=== PATIENT | male | born 1965 | race Caucasian/White ===

== ENCOUNTER 2021-01-18 09:15 | Outpatient (CLI) | payer OTHER | END 2021-01-18 09:45 | LOC: SLEEP 09:15 | PROVIDERS: ATTEND Otolaryngology Otolaryngology/Facial Plastic Surgery | DX: G47.33 Obstructive sleep apnea (adult) (pediatric) (principal); G47.10 Hypersomnia, unspecified | CPT/HCPCS: G0399 ==

== ENCOUNTER 2021-12-06 05:27 | Outpatient (CLI) | payer OTHER ==
[~2021-12-06] VITALS: Ht 187.9 cm; Wt 113.6 kg
[2021-12-09] MEDS ORDERED: HYDR25TA4 PO (15:55)
[2021-12-09] MEDS ORDERED: PRD1T PO (15:55)
== END 2021-12-09 16:02 | disposition home or self-care (01) ==
LOC: PREOP 05:27
PROVIDERS: ATTEND Otolaryngology Otolaryngology/Facial Plastic Surgery
DX: Z01.818 Encounter for other preprocedural examination (principal)

== ENCOUNTER 2021-12-13 07:23 | Day surgery (SDC) | payer OTHER ==
[2021-12-13] VITALS (18 sets, daily range): BP systolic 117–170; BP diastolic 76–110
[~2021-12-13] VITALS: Ht 188 cm; Wt 113.6 kg
[~2021-12-13 07:23] MED LIST: HYDR25TA4 PO; PRD1T PO
[2021-12-13] MEDS ORDERED: COCAINE HCL 4% 2 ML SYR ONE (07:57)
[2021-12-13] MEDS ORDERED: LIDOCAINE/EPI 2% 1:100,00 (XYLOCAINE) 20 ML VIAL ONE (07:57)
[2021-12-13] MEDS ORDERED: PHENYLEPHRINE 0.5% NASAL SPR (NEO-SYNEPHRINE) REG ONE (07:58)
[2021-12-13] MEDS ORDERED: BSS 15 ML ONE (07:58)
[2021-12-13] MEDS ORDERED: LACTATED RINGERS 1,000 ML IV PRN (08:00)
[2021-12-13] MEDS ORDERED: AMPICILLIN/SULBACTAM INJECTION 1.5 GM in NS (IVPB) 100 ML IV ONE (08:00)
[2021-12-13] MEDS ORDERED: HYDROCORTISONE 100 MG/2 ML (Solu-CORTEF) VIAL IV ONE (08:00)
[2021-12-13] MEDS ORDERED: ROCURONIUM 50 MG/5 ML (ZEMURON) VIAL IV ONE (08:37)
[2021-12-13] MEDS ORDERED: fentaNYL INJ 100 MCG/2 ML AMP ONE (08:37)
[2021-12-13] MEDS ORDERED: proPOfol 200 MG/20 ML (DIPRIVAN) VIAL IV ONE (08:37)
[2021-12-13] MEDS ORDERED: MIDAZOLAM 2 MG/2 ML (VERSED) VIAL ONE (08:37)
[2021-12-13] MEDS ORDERED: ONDANSETRON 4 MG/2 ML (SDV) Z0FRAN ONE (08:37)
[2021-12-13] MEDS ORDERED: LIDOCAINE PF 2% 5 ML (XYLOCAINE) VIAL ONE (08:37)
[2021-12-13] MEDS ORDERED: SEVOFLURANE (ULTANE) 15 ML INHAL SOLN ONE ×2 (08:37→10:16)
--- NOTE | 2021-12-13 08:54 | Progress Note-Pre Operative ---
Pre-Operative Progress Note H&P Reviewed The H&P was reviewed, patient examined and no changes noted. Date Seen by Provider: Dec 13, 2021 Time Seen by Provider: 08:15 Date H&P Reviewed: Dec 13, 2021 Time H&P Reviewed: 08:15 Pre-Operative Diagnosis: Bilat Chronic Sinusitis, deviated septum , bilat hyper of inf turbs ALEC VALERIO MD Dec 13, 2021 08:54
--- NOTE | 2021-12-13 08:55 | Progress Note-Post Operative ---
Post-Operative Progess Note Surgeon (s)/Piston Maker (s) Surgeon ALEC VALERIO MD Piston Maker n/a Pre-Operative Diagnosis Bilat Chronic Sinusitis, deviated septum , bilat hyper of inf turbs Post-Operative Diagnosis same Post-Op Procedure Note Date of Procedure: Dec 13, 2021 Name of Procedure Performed: Bilateral ESS, Nasal spetoplasaty, Bilat red of Inf turbs Description & Findings Description and Findings: n/a Anesthesia Type get Estimated Blood Loss minimal Packing none. Specimen(s) collected/removed bilat chroinc sinus disease nasal septum ALEC VALERIO MD Dec 13, 2021 08:55
[2021-12-13] MEDS ORDERED: D5 1/2 NS W/KCL 20 MEQ/L 1,000 ML IV SCH (09:00)
[2021-12-13] MEDS ORDERED: HYDROcodone/APAP 5 MG/325 MG (LORTAB) TAB PO PRN (09:00)
[2021-12-13] MEDS ORDERED: PROMETHAZINE INJ 25 MG/ML (PHENERGAN) AMP IVP PRN (09:00)
[2021-12-13] MEDS ORDERED: predniSONE 20 MG TAB PO ONE (09:00)
[2021-12-13] MEDS ORDERED: HYDROmorphone 2 MG/ML VIAL (DILAUDID) IV ONE (10:15)
[2021-12-13] MEDS ORDERED: MEPERIDINE (DEMEROL) INJ 50 MG/ML IVP ONE (10:15)
[2021-12-13] MEDS ORDERED: ONDANSETRON 4 MG/2 ML (SDV) Z0FRAN IVP PRN (10:15)
[2021-12-13] MEDS ORDERED: morphine INJ 10 MG/ML 1ML (SYR OR VIAL) IVP ONE (10:15)
--- NOTE | 2021-12-13 10:15 | Anesthesia-General Post-Op ---
General Patient Condition Mental Status/LOC: Same as Preop Cardiovascular: Satisfactory Nausea/Vomiting: Absent Respiratory: Satisfactory Pain: Controlled Complications: Absent Post Op Complications Complications None Follow Up Care/Instructions Patient Instructions None needed. Anesthesia/Patient Condition Patient Condition Patient is doing well, no complaints, stable vital signs, no apparent adverse anesthesia problems. No complications reported per nursing. ANGELA CORCORAN CRNA Dec 13, 2021 10:15
[2021-12-13] MEDS ORDERED: hydrALAZINE (APESOLINE) 20 MG/ML VIAL ONE (11:22)
[2021-12-13] MEDS: hydrALAZINE (APESOLINE) 20 MG/ML VIAL IV NR ×2 (11:25→11:35)
[2021-12-13] MEDS ORDERED: LABETALOL HCL 20 MG/4 ML VIAL ONE (11:45)
[2021-12-13] MEDS ORDERED: ACHD5005 PO (12:35)
[2021-12-13] MEDS ORDERED: AMOX-355 PO (12:35)
[2021-12-13] MEDS ORDERED: PRD20T PO (12:52)
== END 2021-12-13 13:40 | disposition home or self-care (01) ==
LOC: SDC 07:23
PROVIDERS: ATTEND Otolaryngology Otolaryngology/Facial Plastic Surgery
DX: J34.2 Deviated nasal septum (principal); J32.9 Chronic sinusitis, unspecified; J34.3 Hypertrophy of nasal turbinates; R09.81 Nasal congestion; J34.89 Other specified disorders of nose and nasal sinuses; E66.9 Obesity, unspecified; Z68.32 Body mass index [BMI] 32.0-32.9, adult
CPT/HCPCS: 87070; 87075; 87081; 87101; 87205; 93005